=== PATIENT | male | born 1945 | race Caucasian/White ===

== ENCOUNTER 2022-02-27 07:31 | Observation (INO) | payer MEDICARE ==
[2022-02-24 11:16] VITALS: BMI 28.3
[2022-02-27] MEDS ORDERED: CEFAZOLIN 2 GM VIAL ONE ×2 (07:57→09:58)
[2022-02-27] MEDS ORDERED: Sodium Chloride 0.9% 0 ML ONE (07:58)
[2022-02-27 09:44] LABS: SARS-CoV-2 NAA Rapid Test Not Detected (NotDetected)
[2022-02-27] MEDS ORDERED: Sodium Chloride 0.9% 100 ML ONE (09:58)
[2022-02-27] MEDS ORDERED: Promethazine 25 MG TAB PO PRN (10:54)
[2022-02-27] MEDS ORDERED: Mag-Al 1200 mg/1200 mg/30 ML UDCUP PO PRN (10:54)
[2022-02-27] MEDS ORDERED: Cyclobenzaprine 10 MG TAB PO PRN (10:54)
[2022-02-27] MEDS ORDERED: traMADol HCl 50 MG TAB PO PRN (10:54)
[2022-02-27] MEDS ORDERED: Acetaminophen/Codeine 30-300mg Tablet PO PRN (10:54)
[2022-02-27] MEDS ORDERED: Milk Of Magnesia 30 ML UDCUP PO PRN (10:54)
[2022-02-27] MEDS ORDERED: Ondansetron PF 4 MG/2 ML Vial IVP PRN (10:54)
[2022-02-27] MEDS ORDERED: Morphine 4 MG/ML VIAL SLOW IVP PRN (10:54)
[2022-02-27] MEDS ORDERED: fentaNYL PF 100 MCG/2 ML SYRINGE ONE (11:23)
[2022-02-27] MEDS ORDERED: Rocuronium Bromide 10 MG/ML (10ML VIAL) ONE (11:26)
[2022-02-27] MEDS ORDERED: Dexamethasone 20 MG/5 ML VIAL ONE (11:26)
[2022-02-27] MEDS ORDERED: ePHEDrine 50 MG/ML VIAL ONE (11:26)
[2022-02-27] MEDS ORDERED: PROPOFOL 200 MG/20 ML VIAL ONE (11:26)
[2022-02-27] MEDS ORDERED: Phenylephrine 10 MG/ML VIAL ONE (11:26)
[2022-02-27] MEDS ORDERED: Ondansetron PF 4 MG/2 ML Vial ONE (11:26)
[2022-02-27] MEDS ORDERED: Glycopyrrolate 0.2 MG/ML 5 ML SYRINGE ONE (11:26)
[2022-02-27] MEDS ORDERED: NEOSTIGMINE 3 MG/3 ML SYR 3 MG/3 ML SYRINGE ONE (11:26)
[2022-02-27] MEDS ORDERED: traZODone HCl 50 MG TAB PO PRN (13:03)
[2022-02-27] MEDS ORDERED: FENTANYL 50 MCG/ML 1 ML VIAL ONE ×5 (13:14→16:20)
[2022-02-27] MEDS ORDERED: Ketorolac Tromethamine 30 MG/ML VIAL IVP PRN (13:16)
[2022-02-27] MEDS ORDERED: HYDROmorphone 2 MG/ML VIAL SLOW IVP PRN (13:16)
[2022-02-27] MEDS ORDERED: Ondansetron HCl/PF 4 MG/2 ML Vial IVP PRN (13:16)
[2022-02-27] MEDS ORDERED: Promethazine HCl 25 MG/ML VIAL IVPB PRN (13:16)
[2022-02-27] MEDS ORDERED: Promethazine HCl 25 MG/ML VIAL IM PRN (13:16)
[2022-02-27] MEDS ORDERED: Ketorolac Tromethamine 30 MG/ML VIAL ONE (13:43)
[2022-02-27] MEDS ORDERED: HYDROmorphone 0.5 MG/0.5 ML SYRINGE ONE (14:01)
[2022-02-27] MEDS ORDERED: CEFAZOLIN 2 GM in Sodium Chloride 0.9% 100 ML IVPB SCH (16:00)
[2022-02-27] MEDS: Sodium Chloride 0.9% 1,000 ML IV SCH (20:04)
[2022-02-27] MEDS: Acetaminophen/Codeine 30-300mg Tablet PO PRN (20:07)
[2022-02-27] MEDS: Tamsulosin HCl 0.4 MG CAP PO SCH (20:07)
[2022-02-27] MEDS: CEFAZOLIN 2 GM in Sodium Chloride 0.9% 100 ML IVPB SCH (20:12)
[2022-02-27] MEDS ORDERED: Gabapentin 300 MG CAP PO SCH (21:00)
[2022-02-28] MEDS: Sodium Chloride 0.9% 1,000 ML IV SCH (00:53)
[2022-02-28] MEDS ORDERED: CEFAZOLIN 2 GM VIAL ONE (03:16)
[2022-02-28] MEDS: CEFAZOLIN 2 GM in Sodium Chloride 0.9% 100 ML IVPB SCH (03:21)
[2022-02-28] MEDS: Acetaminophen/Codeine 30-300mg Tablet PO PRN ×2 (03:21→12:22)
[2022-02-28] MEDS ORDERED: Tamsulosin HCl 0.4 MG CAP PO SCH (06:00)
[2022-02-28 08:28] VITALS: BP 147/76; TEMP 97.3
[2022-02-28] MEDS: Tamsulosin HCl 0.4 MG CAP PO SCH (08:50)
[2022-02-28] MEDS ORDERED: Lisinopril 20 MG TAB PO SCH (09:00)
== END 2022-02-28 12:29 | disposition home or self-care (01) ==
LOC: SDC 07:31 → SJJU 16:59
PROVIDERS: ADMIT Neurological Surgery; ATTEND Neurological Surgery
PROC: 0SG1071 Fusion of 2 or more Lumbar Vertebral Joints with Autologous Tissue Substitute, Posterior Approach, Posterior Column, Open Approach (ICD-10-PCS; principal; 2022-02-27)
DX: M48.061 Spinal stenosis, lumbar region without neurogenic claudication (principal); M54.16 Radiculopathy, lumbar region; I10 Essential (primary) hypertension; E78.5 Hyperlipidemia, unspecified; Z87.891 Personal history of nicotine dependence; Z79.899 Other long term (current) drug therapy; Z20.822 Contact with and (suspected) exposure to COVID-19
CPT/HCPCS: 20930; 20936; 22612; 22614; 22842; 97116; C1713 ×3; C1768; C1776; J3010; U0002; J1100; J1170; J1885; J2370; J2405; J2704; J3490

== ENCOUNTER 2022-03-28 12:33 | Outpatient (CLI) | payer MEDICARE | END 2022-03-28 12:34 | disposition home or self-care (01) | LOC: TBSIIMAG 12:33 | PROVIDERS: ATTEND Neurological Surgery | DX: M47.26 Other spondylosis with radiculopathy, lumbar region (principal); Z98.890 Other specified postprocedural states | CPT/HCPCS: 72100 ==